=== PATIENT | female | born 1945 | race Hispanic/Latino ===

== ENCOUNTER 2018-02-10 20:24 | Emergency (ER) | payer MEDICARE, OTHER ==
[2018-02-10 21:26] LABS: BASOPHILS % (AUTO) 0.4 % (0.0-5.0); EOSINOPHILS % (AUTO) 0.8 % (0.0-8.0); HEMATOCRIT 38.2 % (36-48); LYMPHOCYTES % (AUTO) 14.8 % (21.0-51.0); MEAN CORPUSCULAR HEMOGLOBIN 29.9 pg (27.0-33.0); MEAN CORPUSCULAR HGB CONC 34.5 g/dL (32.0-36.0); MEAN CORPUSCULAR VOLUME 86.8 fL (79-99); MONOCYTES % (AUTO) 5.8 % (3.0-13.0); NEUTROPHILS % (AUTO) 78.2 % (40.0-77.0); PLATELET COUNT (AUTO) 208 K/uL (130-400); RED CELL DISTRIBUTION WIDTH 12.2 % (11.0-15.5); WHITE BLOOD COUNT (AUTO) 10.9 K/uL (4.8-10.8)
[2018-02-10 21:40] LABS: CREATININE 0.7 mg/dL (0.5-1.5); POTASSIUM 3.7 mmol/L (3.5-5.1)
[2018-02-10 21:46] LABS: ALBUMIN 3.5 g/dL (3.5-5.0); BILIRUBIN,TOTAL 0.5 mg/dL (0.2-1.0); TOTAL PROTEIN, SERUM 8.3 g/dL (6.0-8.3)
[2018-02-10] MEDS ORDERED: ONDANSETRON HCL MDV 20ML 2 MG/ML VIAL ONE (22:23)
[2018-02-10] MEDS ORDERED: SODIUM CHLORIDE 0.9% 1000ML 1,000 ML IV ONE (22:23)
[2018-02-10 22:50] LABS: BILIRUBIN,URINE Negative (NEGATIVE); COLOR,URINE Dark Yellow (YELLOW); GLUCOSE, URINE (UA) TRACE mg/dL (NEGATIVE); KETONES,URINE 15 mg/dL (NEGATIVE); LEUKOCYTE ESTERASE ,URINE Moderate (NEGATIVE); NITRATE,URINE Negative (NEGATIVE); OCCULT BLOOD,URINE Negative (NEGATIVE); PROTEIN,URINE POS 1+ (NEGATIVE)
[2018-02-10 22:51] LABS: APPEARANCE,URINE CLOUDY (CLEAR)
[2018-02-10 23:03] LABS: BACTERIA,URINE Many /HPF (None Seen); TRANSITIONAL EPI CELLS,URINE Few /HPF (None Seen); WBC,URINE >100 /HPF (0-1)
[2018-02-10 23:04] LABS: AMORPHOUS SEDIMENT,UR Many /LPF (None Seen); MUCUS,URINE Many LPF (None Seen); RBC,URINE None Seen /HPF (0-1)
[2018-02-11 00:02] LABS: RAPID GROUP A STREP NEGATIVE (NEGATIVE)
[2018-02-11] MEDS ORDERED: CEFTRIAXONE SODIUM 1 GM ONE (00:03)
== END 2018-02-11 01:41 | disposition home or self-care (01) ==
LOC: EDH 20:24
DX: N39.0 Urinary tract infection, site not specified (principal); E11.9 Type 2 diabetes mellitus without complications
CPT/HCPCS: 36415 ×2; 80053; 81001; 83605; 83690; 84484; 85025; 87804 ×2; 87880; 93005; 96361; 96374; 96375; 99285; J0696; J7030